=== PATIENT | female | born 1980 | race Caucasian/White ===

== ENCOUNTER 2020-10-25 09:25 | Emergency (ER) | payer SELFPAY ==
[2020-10-25] MEDS ORDERED: Diazepam 10 MG/2 ML SYRINGE ONE ×4 (09:36→12:34)
[2020-10-25] MEDS ORDERED: Promethazine HCl 25 MG/ML VIAL ONE (09:36)
--- NOTE | 2020-10-25 09:47 | RAD ---
XR Chest 1 View Portable HISTORY: Dizziness, migraines COMPARISON: None FINDINGS: The heart size is normal. The lungs are well expanded without focal areas of consolidation, pneumothorax or pleural effusions. IMPRESSION: No radiographic evidence of acute cardiopulmonary process.
[2020-10-25 09:58] LABS: #Basophils 0.1 thou/uL (0.0-0.2); #Eosinphils 0.2 thou/uL (0.0-0.7); #Lymphocytes 1.8 thou/uL (1.20-3.40); #Monocytes 0.5 thou/uL (0.11-0.59); #Neutrophils 5.9 thou/uL (1.40-6.50); %Basophils 0.8 % (0.0-1.0); %Lymphocytes 21.7 % (21.0-51.0); %Neutrophils 69.6 % (42.0-75.0); Hemoglobin 13.6 g/dL (12.0-16.0); Mean Corpuscular HGB CONC 33.4 g/dL (32.0-36.0); Mean Corpuscular Hemoglobin 31.8 pg (27.0-31.0); Mean Corpuscular Volume 95.2 fL (78.0-98.0); Mean Platelet Volume 8.3 fL (7.4-10.4); Platelet Count 256 thou/uL (130-400); RBC Distribution Width 11.9 % (11.5-14.5); Red Blood Cell (RBC) Count 4.27 mill/uL (4.20-5.40); White Blood Cell (WBC) Count 8.4 thou/uL (4.8-10.8)
[2020-10-25] MEDS ORDERED: Lorazepam 2 MG/ML VIAL ONE ×2 (10:01→10:02)
[2020-10-25 10:10] LABS: BHCG - Serum POSITIVE (NEGATIVE); Pregs Control Bar Appear? YES (CONTROL BAR)
[2020-10-25 10:11] LABS: Pregs Control Background? CLEAR/WHITE (CLR/WHITE)
--- NOTE | 2020-10-25 10:26 | CT ---
CT BRAIN WITHOUT CONTRAST: HISTORY: Dizziness. Migraine headaches FINDINGS: No evidence of acute infarct, hemorrhage, midline shift or abnormal extra-axial fluid collections is seen. The ventricular size is appropriate and the basilar cisterns are patent. The bony calvarium is intact. The visualized paranasal sinuses and mastoid air cells are well aerated. IMPRESSION: No CT evidence of acute intracranial process.
[2020-10-25 10:43] LABS: Albumin 4.5 g/dL (3.5-5.0)
[2020-10-25 10:45] LABS: Calcium 9.2 mg/dL (7.8-10.44); Chloride 107 mmol/L (98-107); Potassium 4.7 mmol/L (3.5-5.1); Sodium 136 mmol/L (136-145)
[2020-10-25 10:46] LABS: Globulin 3.3 g/dL (2.4-3.5); Glucose 115 mg/dL (70-105); Protein, Total 7.8 g/dL (6.0-8.3)
[2020-10-25 10:47] LABS: Anion Gap 17 mmol/L (10-20); Carbon Dioxide 17 mmol/L (22-29)
[2020-10-25 10:48] LABS: Bilirubin, Total 0.4 mg/dL (0.2-1.2)
[2020-10-25 10:49] LABS: Alkaline Phosphatase 36 U/L (40-110)
[2020-10-25 10:50] LABS: BUN (Urea Nitrogen) 14 mg/dL (7.0-18.7); Calc. Creatinine Clearance 0 mL/min (70-130)
[2020-10-25 10:51] LABS: AST (SGOT) 31 U/L (5-34)
[2020-10-25 10:52] LABS: ALT (SGPT) 22 U/L (8-55)
[2020-10-25 12:15] LABS: Bilirubin Negative (Negative); Blood, Urine 1+ (Negative); Clarity Clear (Clear); Glucose, Urine (Dipstick) Normal (Negative); Ketone, Urine Negative (Negative); Leukocyte Negative Leu/uL (Negative); Nitrite Negative (Negative); Protein, Urine (Dipstick) Negative (Neg-Trace); Specific Gravity, Urine 1.019 (1.002-1.036); Squamous Epithelial 0-3 HPF (0-3); Urobilinogen Normal mg/dL (Less than 2); WBC/HPF 0-3 HPF (0-3)
[2020-10-25 12:35] LABS: Bacteria/HPF Rare-Few HPF (None Seen)
== END 2020-10-25 14:51 | disposition home or self-care (01) ==
LOC: ERS 09:25
DX: H81.10 Benign paroxysmal vertigo, unspecified ear (principal); R29.700 NIHSS score 0; G43.909 Migraine, unspecified, not intractable, without status migrainosus; F17.210 Nicotine dependence, cigarettes, uncomplicated
CPT/HCPCS: 36415; 70450; 71045; 80053; 81003; 81015; 84484; 84703; 85025; 93005; 96365; 96375; 96376; J2060; J2550; J3360

== ENCOUNTER 2021-12-01 19:04 | Emergency (ER) | payer SELFPAY ==
[2021-12-01 19:26] LABS: #Basophils 0.1 thou/uL (0.0-0.2); #Eosinphils 0.1 thou/uL (0.0-0.7); #Lymphocytes 1.9 thou/uL (1.20-3.40); #Monocytes 1.2 thou/uL (0.11-0.59); #Neutrophils 12.3 thou/uL (1.40-6.50); %Basophils 0.5 % (0.0-1.0); %Eosinophils 0.9 % (0.0-10.0); %Lymphocytes 12.1 % (21.0-51.0); %Monocytes 7.9 % (0.0-10.0); %Neutrophils 78.6 % (42.0-75.0); Hemoglobin 11.8 g/dL (12.0-16.0); Mean Corpuscular HGB CONC 33.7 g/dL (32.0-36.0); Mean Corpuscular Hemoglobin 30.6 pg (27.0-31.0); Mean Corpuscular Volume 90.7 fL (78.0-98.0); Mean Platelet Volume 6.5 fL (7.4-10.4); Platelet Count 420 thou/uL (130-400); RBC Distribution Width 11.9 % (11.5-14.5); Red Blood Cell (RBC) Count 3.87 mill/uL (4.20-5.40); White Blood Cell (WBC) Count 15.6 thou/uL (4.8-10.8)
[2021-12-01 19:46] LABS: ALT (SGPT) 18 U/L (8-55); AST (SGOT) 17 U/L (5-34); Albumin 3.7 g/dL (3.5-5.0); Alkaline Phosphatase 74 U/L (40-110); Anion Gap 14 mmol/L (10-20); BUN (Urea Nitrogen) 14 mg/dL (7.0-18.7); Bilirubin, Total 0.5 mg/dL (0.2-1.2); CK (CPK) 121 U/L (29-168); Calc. Creatinine Clearance 0 mL/min (70-130); Calcium 8.7 mg/dL (7.8-10.44); Carbon Dioxide 23 mmol/L (22-29); Chloride 103 mmol/L (98-107); Globulin 3.1 g/dL (2.4-3.5); Glucose 104 mg/dL (70-105); Potassium 3.7 mmol/L (3.5-5.1); Protein, Total 6.8 g/dL (6.0-8.3); Sodium 136 mmol/L (136-145)
[2021-12-02 17:22] LABS: SARS-CoV-2 PCR by NAA DETECTED (NotDetected)
== END 2021-12-01 20:55 | disposition home or self-care (01) ==
LOC: ERS 19:04
DX: U07.1 COVID-19 (principal); G43.909 Migraine, unspecified, not intractable, without status migrainosus; F17.210 Nicotine dependence, cigarettes, uncomplicated
CPT/HCPCS: 36415; 71045; 80053; 82550; 83605; 84484; 85025; 87040; 93005; U0003; U0005

== ENCOUNTER 2023-07-18 10:48 | Emergency (ER) | payer SELFPAY ==
[2023-07-18] MEDS ORDERED: Meclizine HCl 25 MG TAB ONE (11:41)
[2023-07-18] MEDS ORDERED: LORazepam 2 MG/ML SYR.(CARPUJECT) ONE (11:41)
== END 2023-07-18 12:19 | disposition home or self-care (01) ==
LOC: ERS 10:48
DX: F19.10 Other psychoactive substance abuse, uncomplicated (principal); F17.210 Nicotine dependence, cigarettes, uncomplicated
CPT/HCPCS: 99283; J2060